=== PATIENT | male | born 1930 | race Caucasian/White ===

== ENCOUNTER 2017-02-05 11:53 | Outpatient (CLI) | payer MEDICARE, OTHER | END 2017-02-05 11:54 | disposition critical access hospital (66) | LOC: EMS 11:53 | PROVIDERS: ATTEND Surgery | DX: R50.9 Fever, unspecified (principal); R47.9 Unspecified speech disturbances; R26.89 Other abnormalities of gait and mobility | CPT/HCPCS: A0425; A0429 ==

== ENCOUNTER 2017-02-05 12:34 | Emergency (ER) | payer MEDICARE, OTHER ==
--- NOTE | 2017-02-05 12:47 | ED Physician Documentation ---
PD HPI URI - Stated complaint Stated Complaint: FEVER - Chief complaint Chief Complaint: Fever - History obtained from History obtained from: Patient, Family (spouse) - History of Present Illness Timing - onset: Yesterday Timing duration: Days (1) Timing details: Abrupt onset, Still present Associated symptoms: Fever, Chills, Sore throat. No: Nasal congestion, Sinus pain, Dry cough, Productive cough Contributing factors: No: Sick contact, Travel, Immunocompromised, COPD / asthma Worsened by: Other (swallowing) Similar symptoms before: Has not had sx before Recently seen: Not recently seen Review of Systems Constitutional: reports: Fever, Chills, Myalgias Nose: denies: Rhinorrhea / runny nose, Congestion Throat: reports: Sore throat, Swollen tonsils Cardiac: denies: Chest pain / pressure Respiratory: denies: Cough GI: denies: Abdominal Pain, Nausea, Vomiting, Diarrhea Skin: denies: Rash, Lesions PD PAST MEDICAL HISTORY - Past Medical History Cardiovascular: Congestive heart failure, Hypertension, High cholesterol, Coronary artery disease, [place] Respiratory: Other Neuro: Other Endocrine/Autoimmune: None : Benign prostate hypertrophy Derm: Psoriasis - Past Surgical History Past Surgical History: Yes General: Cholecystectomy Cardiovascular: AICD - Present Medications Home Medications: Ambulatory Orders Medication Instructions Recorded Confirmed Apixaban [Eliquis] 2.5 mg PO BID 03/31/16 02/05/17 Finasteride 5 mg PO DAILY 03/31/16 02/05/17 Fluticasone [Flonase] 1 sprays RADHA DAILY 03/31/16 02/05/17 Furosemide 20 mg PO DAILY 03/31/16 02/05/17 Hydrocodone/Acetaminophen [[place] 1 each PO Q6H PRN #20 tablet 03/31/16 02/05/17 5-325 Tablet] Methocarbamol [Robaxin] 500 mg PO BID #25 tablet 03/31/16 02/05/17 Metoprolol Succinate 12.5 mg PO BID 03/31/16 02/05/17 Prednisone 5 mg PO DAILY 03/31/16 02/05/17 Simvastatin 10 mg PO DAILY 03/31/16 02/05/17 Valsartan 40 mg PO DAILY 03/31/16 02/05/17 Vit C/E/Zinc/Lutein/Zeaxanthin 1 each PO 03/31/16 03/31/16 [[facility]] Cephalexin [Keflex] 500 mg PO QID #24 capsule 02/05/17 Dexamethasone [Decadron] 4 mg PO DAILY #5 tablet 02/05/17 HYDROcod/ACETAM 5/325 [[place] 5/325] 1 tab PO Q6H PRN #15 tablet 02/05/17 - Allergies Allergies/Adverse Reactions: Allergies Allergy/AdvReac Type Severity Reaction Status Date / Time No Known Drug Allergies Allergy Verified 03/31/16 17:07 - Social History Does the pt smoke?: No Smoking Status: Never smoker Does the pt drink ETOH?: No Does the pt have substance abuse?: No PD ED PE NORMAL - Vitals Vital signs reviewed: Yes - General General: Alert and oriented X 3, No acute distress, Well developed/nourished - HEENT HEENT: Moist mucous membranes, Dentition benign. No: Pharynx benign (left tonsil okay; right tonsil with redness and some swelling. There is also swelling around and below the tonsil, without bulging appearance of the tissue. Submandibular area with some fullness but not firm/fluctuant. ) - Neck Neck: Supple, no meningeal sign - Cardiac Cardiac: RRR, No murmur - Respiratory Respiratory: Clear bilaterally - Derm Derm: Normal color, Warm and dry, No rash Results - Vitals Vitals: Oxygen O2 Source Room air - Labs Labs: Microbiology 02/05/17 13:17 Group A Strep Throat Culture - Preliminary Throat Laboratory Tests 02/05/17 02/05/17 02/05/17 13:17 13:30 13:30 WBC 7.0 RBC 3.63 L Hgb 11.6 L Hct 34.1 L MCV 94.1 H MCH 31.9 H MCHC 33.9 RDW 14.1 Plt Count 73 L MPV 7.7 Neut # 6.0 Lymph # 0.3 L [place] # 0.5 Eos # 0.1 Baso # 0.0 Absolute Nucleated RBC 0.00 Nucleated RBCs 0.0 Sodium 138 Potassium 4.0 Chloride 102 Carbon Dioxide 28 Anion Gap 8.0 BUN 20 Creatinine 1.2 Estimated GFR (MDRD) 57 L Glucose 112 H Lactic Acid Calcium 9.0 Magnesium 1.5 L Total Bilirubin 2.9 H AST 60 H ALT 42 Alkaline Phosphatase 70 Total Protein 6.7 Albumin 3.9 Globulin 2.8 Albumin/Globulin Ratio 1.4 Lipase 31 Group A Strep Rapid Negative 02/05/17 13:30 WBC RBC Hgb Hct MCV MCH MCHC RDW Plt Count MPV Neut # Lymph # [place] # Eos # Baso # Absolute Nucleated RBC Nucleated RBCs Sodium Potassium Chloride Carbon Dioxide Anion Gap BUN Creatinine Estimated GFR (MDRD) Glucose Lactic Acid 0.8 Calcium Magnesium Total Bilirubin AST ALT Alkaline Phosphatase Total Protein Albumin Globulin Albumin/Globulin Ratio Lipase Group A Strep Rapid - Rads (name of study) neck soft tissue CT Radiology: Prelim report reviewed (tonsillitis and peritonsillitis right side without abscess) PD MEDICAL DECISION MAKING - ED course Complexity details: reviewed results, re-evaluated patient (much improved with IV fluids/ decadron/ rocephin after 1-2 hours. Given time in ED to ensure getting some initial improvement. ), considered differential, d/w patient Departure - Departure Disposition: Home, Self Care Clinical Impression: Peritonsillitis Condition: Stable Record reviewed to determine appropriate education?: Yes Instructions: ED Peritonsillar Infec Abx No I andD Follow-Up: Caesar Motta MD [Provider Admit Priv/Credential] - Prescriptions: Dexamethasone [Decadron] 4 mg PO DAILY #5 tablet Cephalexin [Keflex] 500 mg PO QID #24 capsule HYDROcod/ACETAM 5/325 [[place] 5/325] 1 tab PO Q6H PRN #15 tablet PRN Reason: Pain Comments: There is an ENT group in [place], Dr. Caesar Motta [phone]. Call Tuesday for follow up appt. Drink lots of fluids. Tylenol for pain, add hydrocodone as needed. Decadron daily for 5 days. Keflex 4 times daily for a week. Return if worsening. Discharge Date/Time: 02/05/17 16:10
[2017-02-05] MEDS ORDERED: SODIUM CHLORIDE 0.9% 500 ML IV ONE (13:16)
[2017-02-05] MEDS ORDERED: DEXAMETHASONE 10 MG/ML VIAL IVP STA (13:17)
[2017-02-05] MEDS ORDERED: HYDROmorphone 1 MG/ML SYRINGE IVP STA (13:17)
[2017-02-05] MEDS ORDERED: cefTRIAXone 1 GM in SODIUM CHLORIDE 0.9% MINIBAG 100 ML IV STA (13:18)
[2017-02-05] MEDS ORDERED: ACETAMINOPHEN 1,000 MG/100 ML 100 ML IV STA (13:20)
[2017-02-05] MEDS ORDERED: HYDROmorphone 1 MG/ML SYRINGE ONE (13:23)
[2017-02-05] MEDS ORDERED: ACETAMINOPHEN 1,000 MG/100 ML 100 ML IV ONE (13:24)
[2017-02-05] MEDS ORDERED: cefTRIAXone 1 GM VIAL ONE (13:24)
[2017-02-05] MEDS ORDERED: CHERRY SYRUP 10 ML UDC PO ONE (13:24)
[2017-02-05] MEDS ORDERED: DEXAMETHASONE 10 MG/ML VIAL ONE (13:24)
[2017-02-05 13:35] LABS: RAPID STREP SCREEN REAGENT QC YELLOW (YELLOW)
[2017-02-05 13:41] LABS: BASOPHILS % (AUTO) 0.3 %; EOSINOPHILS # (AUTO) 0.1 10^3/uL (0.0-0.7); EOSINOPHILS % (AUTO) 1.8 %; HCT - HEMATOCRIT 34.1 % (42.0-52.0); HGB - HEMOGLOBIN 11.6 g/dL (14.0-18.0); LYMPHOCYTES # (AUTO) 0.3 10^3/uL (1.5-3.5); LYMPHOCYTES % (AUTO) 4.7 %; MEAN CORPUSCULAR HEMOGLOBIN 31.9 pg (27.0-31.0); MEAN CORPUSCULAR HGB CONC 33.9 g/dL (32.0-36.0); MEAN CORPUSCULAR VOLUME 94.1 fL (80.0-94.0); MEAN PLATELET VOLUME 7.7 fL (7.4-11.4); MONOCYTES # (AUTO) 0.5 10^3/uL (0.0-1.0); MONOCYTES % (AUTO) 6.9 %; NEUTROPHILS % (AUTO) 86.3 %; RED BLOOD COUNT 3.63 10^6/uL (4.70-6.10); RED CELL DISTRIBUTION WIDTH 14.1 % (12.0-15.0)
[2017-02-05 13:53] LABS: ALBUMIN/GLOBULIN RATIO 1.4 (1.0-2.2); BILIRUBIN,TOTAL 2.9 mg/dL (0.2-1.0); CREATININE 1.2 mg/dL (0.6-1.2); MAGNESIUM 1.5 mg/dL (1.7-2.8); TOTAL PROTEIN 6.7 g/dL (6.7-8.2)
[2017-02-05] MEDS ORDERED: IOPAMIDOL-300 100 ML VIAL IVP ONE (14:24)
--- NOTE | 2017-02-05 14:52 | CT Preliminary Report ---
Exam: CT Neck Soft Tissue W/ IMPRESSION: 1. Swelling and edema centered in the right palatine peritonsillar soft tissues, consistent with tons illitis. No fluid collection to suggest abscess at this time. [facility] SITE ID: [id number]
--- NOTE | 2017-02-05 14:54 | CT Report ---
EXAM: CT SOFT TISSUE NECK EXAM DATE: 02/05/2017 02:29 PM. HISTORY: 86-year-old man with right peritonsillar cellulitis. COMPARISONS: None. TECHNIQUE: Routine soft tissue neck CT protocol. IV contrast: 80 cc Isovue 300. Reconstructions: [place] nal and sagittal. In accordance with CT protocol optimization, one or more of the following dose reduction techniques w ere utilized for this exam: automated exposure control, adjustment of mA and/or KV based on patient s ize, or use of iterative reconstructive technique. FINDINGS: Visualized Intracranial Contents: Unremarkable. Orbits: Unremarkable except for bilateral lens replacement surgery. Sinuses: Paranasal sinuses and mastoid air cells are clear. Pharynx and Oral Cavity: There is asymmetric thickening of the right peritonsillar tissues and surrou nding mucosa. Surrounding fat planes are indistinct, consistent with mild edema. No definite fluid co llection to suggest abscess at this time. The retropharyngeal and left parapharyngeal spaces are norm al. The base of tongue is symmetric and without mass lesion. Larynx: Symmetric without mass lesion. True vocal cords are symmetric. Airway is widely patent. Parotid and Submandibular Glands: Normal. Lymph Nodes and Soft Tissues: No cervical or supraclavicular lymphadenopathy is present. No mass lesi on, abnormal enhancement, or significant fat stranding in the neck soft tissues. Calcified granuloma is present in these appear mediastinum. Status post sternotomy. Pacemaker is incidentally noted in th e left chest wall. Major vessels: Atherosclerotic calcifications are present at the carotid bifurcation bilaterally. Thyroid: Normal. Lung Apices: Clear. Bones: No acute fracture or malalignment. Degenerative changes are present in the cervical spine. IMPRESSION: 1. Swelling and edema centered in the right palatine peritonsillar soft tissues, consistent with tons illitis. No fluid collection to suggest abscess at this time. [facility] Referring Provider Line: [phone] SITE ID: [id number]
[2017-02-05 15:13] VITALS: BP 96/49
== END 2017-02-05 16:10 | disposition home or self-care (01) ==
LOC: EDUNIT# → ED 12:34
DX: J36 Peritonsillar abscess (principal); I11.0 Hypertensive heart disease with heart failure; I50.9 Heart failure, unspecified; I25.10 Atherosclerotic heart disease of native coronary artery without angina pectoris; I25.2 Old myocardial infarction; N40.0 Benign prostatic hyperplasia without lower urinary tract symptoms; E78.00 Pure hypercholesterolemia, unspecified; Z79.01 Long term (current) use of anticoagulants
CPT/HCPCS: 36415; 70491; 80053; 83605; 83690; 83735; 85025; 87070; 87430; 96374; 96375; 99283; 99284; A9270; J0131; J1170; Q9967

== ENCOUNTER 2017-03-07 16:58 | Emergency (ER) | payer MEDICARE, OTHER ==
--- NOTE | 2017-03-07 17:53 | ED Physician Documentation ---
PD HPI ABD PAIN - Stated complaint Stated Complaint: ABD PX - Chief complaint Chief Complaint: Cardiac - History obtained from History obtained from: Patient - History of Present Illness Timing - onset: How many days ago (2) Timing - duration: Days (2) Timing - details: Gradual onset, Still present, Waxing and waning. No: Intermittant Quality: Aching, Pain Location: RUQ, Epigastric Radiation: Chest Worsened by: Eating. No: Breathing, Palpation Associated symptoms: Nausea. No: Fever, Vomiting, Dysuria, Chest pain, Near syncope / syncope Similar symptoms before: Diagnosis (similar to gallbladder pains in the past, but has GB surgery many years ago.) Review of Systems Constitutional: denies: Fever, Chills Nose: denies: Rhinorrhea / runny nose, Congestion Throat: denies: Sore throat Cardiac: denies: Palpitations, Pedal edema, Calf pain Respiratory: reports: Dyspnea. denies: Cough, Wheezing GI: reports: Abdominal Pain. denies: Nausea, Vomiting, Constipation, Diarrhea : denies: Dysuria, Frequency Musculoskeletal: denies: Extremity swelling Neurologic: denies: Focal weakness, Numbness, Near syncope PD PAST MEDICAL HISTORY - Past Medical History Cardiovascular: Congestive heart failure, Hypertension, High cholesterol, Coronary artery disease, [place] Respiratory: Other Neuro: Other Endocrine/Autoimmune: None : Benign prostate hypertrophy Derm: Psoriasis - Past Surgical History Past Surgical History: Yes General: Cholecystectomy Cardiovascular: CABG, Pacemaker, AICD - Present Medications Home Medications: Ambulatory Orders Medication Instructions Recorded Confirmed Apixaban [Eliquis] 2.5 mg PO BID 03/31/16 03/07/17 Finasteride 5 mg PO DAILY 03/31/16 03/07/17 Fluticasone [Flonase] 1 sprays RADHA DAILY 03/31/16 03/07/17 Furosemide 20 mg PO DAILY 03/31/16 03/07/17 Metoprolol Succinate 12.5 mg PO BID 03/31/16 03/07/17 Prednisone 5 mg PO DAILY 03/31/16 03/07/17 Simvastatin 10 mg PO DAILY 03/31/16 03/07/17 Valsartan 40 mg PO DAILY 03/31/16 03/07/17 Vit C/E/Zinc/Lutein/Zeaxanthin 1 each PO DAILY 03/31/16 03/07/17 [[facility] Dexamethasone [Decadron] 4 mg PO DAILY #5 tablet 02/05/17 03/07/17 HYDROcod/ACETAM 5/325 [[place] 5/325] 1 tab PO Q6H PRN #15 tablet 02/05/17 Famotidine [Pepcid] 20 mg PO ONCE #30 tablet 03/07/17 - Allergies Allergies/Adverse Reactions: Allergies Allergy/AdvReac Type Severity Reaction Status Date / Time No Known Drug Allergies Allergy Verified 03/07/17 18:05 - Social History Does the pt smoke?: No Smoking Status: Never smoker Does the pt drink ETOH?: No Does the pt have substance abuse?: No - Family History Family history: reports: Non contributory PD ED PE NORMAL - Vitals Vital signs reviewed: Yes - General General: Alert and oriented X 3, No acute distress, Well developed/nourished - HEENT HEENT: PERRL (nonicteric), Moist mucous membranes, Pharynx benign - Neck Neck: Supple, no meningeal sign, No adenopathy - Cardiac Cardiac: RRR, No murmur, Other (pacer noted left chest, pouch without signs of infection. ) - Respiratory Respiratory: Clear bilaterally - Abdomen Abdomen: Normal bowel sounds, Soft, Non distended, No organomegaly, Other ( tender upper abd without guarding nor percussion tenderness. ) - Male Male : Deferred - Rectal Rectal: Deferred - Back Back: No CVA TTP - Derm Derm: Normal color, Warm and dry - Extremities Extremities: No tenderness to palpate, Normal ROM s pain - Neuro Neuro: Alert and oriented X 3, No motor deficit, Normal speech, Other (using cane for walking. ) Results - Vitals Vitals: Oxygen O2 Source Room air - EKG (time done) 17:20 Rate: Rate (enter#) (73) Rhythm: Paced [place]: Normal Intervals: Wide QRS QRS: Normal Ischemia: Normal ST segments. No: ST elevation c/w ischemia, ST depression - Labs Labs: Laboratory Tests 03/07/17 03/07/17 03/07/17 19:52 20:00 20:00 WBC 7.0 RBC 4.65 L Hgb 14.8 Hct 44.1 MCV 95.0 H MCH 31.9 H MCHC 33.6 RDW 15.0 Plt Count 89 L MPV 7.4 Neut # 6.0 Lymph # 0.4 L [place] # 0.4 Eos # 0.1 Baso # 0.0 Absolute Nucleated RBC 0.00 Nucleated RBCs 0.0 Sodium 134 L Potassium 4.1 Chloride 96 L Carbon Dioxide 29 Anion Gap 9.0 BUN 24 H Creatinine 1.0 Estimated GFR (MDRD) 71 L Glucose 99 Calcium 9.1 Magnesium 1.8 Total Bilirubin 2.6 H AST 50 H ALT 52 Alkaline Phosphatase 61 Troponin I Total Protein 6.8 Albumin 4.1 Globulin 2.7 Albumin/Globulin Ratio 1.5 Lipase 43 Urine Color YELLOW Urine Clarity HAZY Urine pH 6.0 Ur Specific [place] 1.010 Urine Protein NEGATIVE Urine Glucose (UA) NEGATIVE Urine Ketones NEGATIVE Urine Occult Blood SMALL H Urine Nitrite NEGATIVE Urine Bilirubin NEGATIVE Urine Urobilinogen 1 (NORMAL) Ur Leukocyte Esterase NEGATIVE Urine RBC 6-10 H Urine WBC 0-3 Ur Squamous Epith Cells MOD Squamous H Urine Bacteria Rare Ur Microscopic Review INDICATED Urine Culture Comments NOT INDICATED 03/07/17 03/07/17 20:00 21:20 WBC RBC Hgb Hct MCV MCH MCHC RDW Plt Count MPV Neut # Lymph # [place] # Eos # Baso # Absolute Nucleated RBC Nucleated RBCs Sodium Potassium Chloride Carbon Dioxide Anion Gap BUN Creatinine Estimated GFR (MDRD) Glucose Calcium Magnesium Total Bilirubin AST ALT Alkaline Phosphatase Troponin I 0.06 0.07 Total Protein Albumin Globulin Albumin/Globulin Ratio Lipase Urine Color Urine Clarity Urine pH Ur Specific [place] Urine Protein Urine Glucose (UA) Urine Ketones Urine Occult Blood Urine Nitrite Urine Bilirubin Urine Urobilinogen Ur Leukocyte Esterase Urine RBC Urine WBC Ur Squamous Epith Cells Urine Bacteria Ur Microscopic Review Urine Culture Comments PD MEDICAL DECISION MAKING - ED course Complexity details: considered differential, d/w patient Departure - Departure Disposition: 01 Home, Self Care Clinical Impression: Upper abdominal pain Gastritis Qualifiers: Gastritis type: unspecified gastritis Chronicity: acute Gastritis bleeding: without bleeding Qualified Code(s): K29.00 - Acute gastritis without bleeding Condition: Stable Record reviewed to determine appropriate education?: Yes Instructions: ED Abdominal Pain Unkn Cause, ED Gastritis Prescriptions: Famotidine [Pepcid] 20 mg PO ONCE #30 tablet Comments: No obvious diagnosis on the tests that we have done. However there are limitation does not find all causes. I think you are possibly having some irritation of the stomach called gastritis as a cause of your pain. Famotidine twice daily for the first week and then daily for another couple of weeks. This reduces stomach acids. He could also use [place] or Tums or Mylanta type antacids periodically. Follow-up with your primary care later this week and call tomorrow for an appointment. Recheck if worsening symptoms or other problems. Discharge Date/Time: 03/07/17 22:32
[2017-03-07] MEDS ORDERED: SODIUM CHLORIDE FLUSH 0.9% 10 ML SYRINGE IVP ONE (18:33)
--- NOTE | 2017-03-07 19:49 | CT Preliminary Report ---
Exam: CT Abdomen/Pelvis W/O IMPRESSION: 1. Elevated left hemidiaphragm with overlying scarring. 2. Cholecystectomy noted. 3. Mild diverticulosis without diverticulitis or other acute bowel abnormality. 4. Incidental right colon lipoma noted. [facility] SITE ID: [id number]
--- NOTE | 2017-03-07 19:51 | CT Report ---
EXAM: CT ABDOMEN AND PELVIS EXAM DATE: 03/07/2017 07:10 PM. CLINICAL HISTORY: Upper abdomen pain for 3-4 days. COMPARISONS: None. TECHNIQUE: Routine helical CT imaging was performed through the abdomen and pelvis. IV contrast: None . Enteric contrast: No. Reconstructions: Coronal and sagittal. In accordance with CT protocol optimization, one or more of the following dose reduction techniques w ere utilized for this exam: automated exposure control, adjustment of mA and/or KV based on patient s ize, or use of iterative reconstructive technique. FINDINGS: Lung Bases: Mild left base scarring, with elevated left hemidiaphragm. Liver: Normal. No masses. Gallbladder/Bile Ducts: Cholecystectomy. No dilated ducts. Spleen: Normal. Pancreas: Normal. Adrenal Glands: Normal. Kidneys: Lower pole 2.7 cm cyst on the right, otherwise unremarkable. Peritoneal Cavity/Bowel: Mild diverticulosis. Lipoma in the wall of the right colon. No free fluid, f ree air or adenopathy. No acute inflammatory process. The appendix is well visualized and normal. Pelvic Organs: Normal. The bladder and visualized pelvic organs are within normal limits. Vasculature: No aortic aneurysm. Moderate atherosclerotic calcification. Bones: No significant abnormality. Other: None. IMPRESSION: 1. Elevated left hemidiaphragm with overlying scarring. 2. Cholecystectomy noted. 3. Mild diverticulosis without diverticulitis or other acute bowel abnormality. 4. Incidental right colon lipoma noted. [facility] Referring Provider Line: [phone] SITE ID: [id number]
[2017-03-07 20:02] VITALS: BP 121/98
[2017-03-07 20:06] LABS: BASOPHILS % (AUTO) 0.6 %; EOSINOPHILS # (AUTO) 0.1 10^3/uL (0.0-0.7); EOSINOPHILS % (AUTO) 0.9 %; HCT - HEMATOCRIT 44.1 % (42.0-52.0); HGB - HEMOGLOBIN 14.8 g/dL (14.0-18.0); LYMPHOCYTES # (AUTO) 0.4 10^3/uL (1.5-3.5); LYMPHOCYTES % (AUTO) 5.8 %; MEAN CORPUSCULAR HEMOGLOBIN 31.9 pg (27.0-31.0); MEAN CORPUSCULAR HGB CONC 33.6 g/dL (32.0-36.0); MEAN PLATELET VOLUME 7.4 fL (7.4-11.4); MONOCYTES # (AUTO) 0.4 10^3/uL (0.0-1.0); MONOCYTES % (AUTO) 6.3 %; NEUTROPHILS % (AUTO) 86.4 %; RED BLOOD COUNT 4.65 10^6/uL (4.70-6.10)
[2017-03-07 20:08] LABS: BILIRUBIN,URINE NEGATIVE (NEGATIVE)
[2017-03-07 20:19] LABS: UA w/ MICROSCOPIC CHARGE YES
[2017-03-07 20:26] LABS: ALBUMIN/GLOBULIN RATIO 1.5 (1.0-2.2); BILIRUBIN,TOTAL 2.6 mg/dL (0.2-1.0); CALCIUM 9.1 mg/dL (8.5-10.3); MAGNESIUM 1.8 mg/dL (1.7-2.8); POTASSIUM 4.1 mmol/L (3.5-5.0); TOTAL PROTEIN 6.8 g/dL (6.7-8.2)
[2017-03-07 20:28] LABS: UR CULTURE IF IND NOT INDICATED; WBC,URINE 0-3 /HPF (0-3)
[2017-03-07] MEDS ORDERED: MAG HYDROX/AL HYDROX/SIMETH 30 ML UDC ONE (21:07)
[2017-03-07] MEDS ORDERED: MORPHINE 2 MG/ML SYRINGE ONE (21:07)
[2017-03-07] MEDS: MAG HYDROX/AL HYDROX/SIMETH 30 ML UDC PO STA (21:07)
[2017-03-07] MEDS: MORPHINE 2 MG/ML SYRINGE IVP STA (21:20)
[2017-03-07] MEDS: FAMOTIDINE 20 MG TABLET PO STA (22:26)
[2017-03-07] MEDS ORDERED: FAMOTIDINE 20 MG TABLET ONE (22:28)
== END 2017-03-07 22:32 | disposition home or self-care (01) ==
LOC: ED 16:58
DX: K29.00 Acute gastritis without bleeding (principal); I11.0 Hypertensive heart disease with heart failure; I50.9 Heart failure, unspecified; E78.00 Pure hypercholesterolemia, unspecified; N40.0 Benign prostatic hyperplasia without lower urinary tract symptoms; I25.10 Atherosclerotic heart disease of native coronary artery without angina pectoris; Z95.1 Presence of aortocoronary bypass graft; Z95.810 Presence of automatic (implantable) cardiac defibrillator
CPT/HCPCS: 36415; 74176; 80053; 81001; 83690; 83735; 84484; 85025; 93005; 96374; 99283; 99284; A9270; 81003; 87086

== ENCOUNTER 2017-09-21 12:20 | Outpatient (CLI) | payer MEDICARE, OTHER ==
--- NOTE | 2017-09-21 15:20 | XRAY Report ---
TWO VIEW CHEST: 09/21/2017 CLINICAL INDICATION: Cough. COMPARISON: 02/15/2012 CT. FINDINGS: Frontal and lateral views of the chest demonstrate a mildly enlarged cardiac silhouette. Changes of previous cardiac surgery and left subclavian pacemaker/AICD are present. There is a patchy left basilar infiltrate present. No effusion or pneumothorax is seen. IMPRESSION: PATCHY LEFT BASILAR INFILTRATE. TD: 09/21/2017 15:18
== END 2017-09-21 12:21 | disposition home or self-care (01) ==
LOC: DI 12:20
PROVIDERS: ATTEND Internal Medicine
DX: R91.8 Other nonspecific abnormal finding of lung field (principal)
CPT/HCPCS: 71046